=== PATIENT | male | born 1970 | race American Indian/Alaskan Native ===

== ENCOUNTER 2018-02-19 21:06 | Emergency (ER) | payer OTHER ==
[2018-02-19] MEDS ORDERED: ASPIRIN PO ONE (21:37)
[2018-02-19] MEDS ORDERED: ATIVAN IV ONE (21:40)
[2018-02-19] MEDS ORDERED: NACL 0.9% 1000 ML 1,000 ML IV ONE (21:40)
--- NOTE | 2018-02-19 21:41 | Emergency Department Report ---
ED Chest Pain HPI - General Chief Complaint: Chest Pain Stated Complaint: CHEST PAIN Time Seen by Provider: 02/19/18 21:30 Source: patient, EMS (ems notes not available at time of chart dictation), RN notes reviewed Mode of arrival: Stretcher Limitations: No Limitations - History of Present Illness Initial Comments: This is a 47-year-old gentleman, unknown to this provider previously. The patient does not have a local primary care doctor, but reports that he has a follow-up stained glass painter, in 2 days, at [facility]. Patient reports that he was seen at [facility] yesterday for chest discomfort. He reports that this past weekend, he flew to [place] for a . He reports that he's been feeling somewhat anxious, and having intermittent left-sided chest wall tightness. The tightness does not radiate to the back, arms or neck, there is no vomiting, there is no diaphoresis, patient does not have shortness of breath per se, but reports that he is feeling anxious, and feels like he is not getting a complete breath. He has taken aspirin today, otherwise denies cocaine use, denies leg pain, leg swelling, hematemesis, bright red blood per rectum, and further reports no family history of cardiac disease, or DVT or pulmonary embolus. He reports that his chest discomfort is essentially resolved at this time, and reports that this started earlier on this evening, at around 7:00, and has since resolved. MD Complaint: chest pain -: Sudden Onset: during rest Pain Location: left chest Pain Radiation: none Severity: mild Severity scale (0 -10): 0 Quality: aching Consistency: intermittent Improves With: nothing Worsens With: nothing Context: recent travel, other Aspirin use within the Past 7 Days: (1) Yes - Related Data Previous Rx's Medication Instructions Recorded Last Taken Type Aspirin [Aspirin BABY CHEW TAB] 81 mg PO QDAY #30 tab.chew 02/20/18 Unknown Rx Allergies Allergy/AdvReac Type Severity Reaction Status Date / Time bismuth subsalicylate AdvReac Unknown Verified 02/19/18 21:36 [From Pepto-Bismol] Heart Score - HEART Score History: Slightly suspicious EKG: Normal Age: 45-65 Risk factors: No known risk factors Troponin: < normal limit HEART Score: 1 - Critical Actions Critical Actions: 0-3 pts:0.9-1.7%risk of adverse cardiac event.Candidate for discharge ED Review of Systems ROS: Stated complaint: CHEST PAIN Other details as noted in HPI Constitutional: denies: fever, malaise Eyes: denies: vision change ENT: denies: epistaxis Respiratory: denies: wheezing Cardiovascular: chest pain Gastrointestinal: denies: nausea, vomiting, hematemesis, melena, hematochezia Genitourinary: denies: dysuria Musculoskeletal: denies: back pain, arthralgia, myalgia Skin: denies: lesions Neurological: denies: weakness Psychiatric: anxiety ED Past Medical Hx - Past Medical History Previous Medical History?: Yes Hx Hypertension: Yes - Surgical History Past Surgical History?: Yes Additional Surgical History: Abdominal Hernia Sx with mesh - Social History Smoking Status: Current Some Day Smoker Substance Use Type: Marijuana - Medications Home Medications: Home Medications Medication Instructions Recorded Confirmed Last Taken Type Aspirin [Aspirin BABY CHEW TAB] 81 mg PO QDAY #30 tab.chew 02/20/18 Unknown Rx ED Physical Exam - General Limitations: No Limitations General appearance: alert, in no apparent distress - Head Head exam: Present: atraumatic, normocephalic - Eye Eye exam: Present: normal appearance, EOMI. Absent: nystagmus - ENT ENT exam: Present: normal exam, normal orophraynx, mucous membranes moist, normal external ear exam - Neck Neck exam: Present: normal inspection, full ROM. Absent: tenderness, m eningismus - Respiratory Respiratory exam: Present: normal lung sounds bilaterally. Absent: respiratory distress - Cardiovascular Cardiovascular Exam: Present: normal rhythm, tachycardia, normal heart sounds. Absent: systolic murmur, diastolic murmur, rubs, gallop - GI/Abdominal GI/Abdominal exam: Present: soft. Absent: distended, tenderness, guarding, rebound, rigid, pulsatile mass - Rectal Rectal exam: Present: deferred - Extremities Exam Extremities exam: Present: normal inspection, other (2+ pulses noted in the bilateral upper, lower extremities. Compartments soft. No long bony tenderness. The pelvis is stable.). Absent: pedal edema, joint swelling, calf tenderness - Back Exam Back exam: Present: normal inspection, full ROM. Absent: tenderness, CVA tenderness (R), paraspinal tenderness - Neurological Exam Neurological exam: Present: alert, oriented X3, CN II-XII intact, normal gait, other (Extraocular movements intact. Tongue midline. No facial droop. Facial sensation intact to light touch in the V1, V2, V3 distribution bilaterally. 5 and 5 strength in 4 extremities.. Sensation is intact to light touch in 4 extremities.). Absent: motor sensory deficit - Psychiatric Psychiatric exam: Present: anxious - Skin Skin exam: Present: warm, dry, intact, normal color. Absent: rash ED Course Vital Signs 02/19/18 02/19/18 21:28 21:37 Temperature 98.5 F Pulse Rate 101 H Respiratory 24 15 Rate Blood Pressure 151/96 Blood Pressure 151/96 [Right] O2 Sat by Pulse 95 100 Oximetry - Reevaluation(s) Reevaluation #1: 02/19/18 22:13 Differential diagnosis, including but not limited to: Anxiety, pulmonary em bolus, pneumonia, acute coronary syndrome Assessment and plan: 47-year-old gentleman, low risk by well's criteria, only risk factor for thromboembolic disease is recent plane trip to [place], , inter mittent tachycardia, not hypoxic, with no physical exam evidence on the lower extremities of DVT or pulmonary embolus. Plan patient to be low risk by well's criteria, we will risk stratify with a d-dimer. Chest pain-free at this time, has no complaints at this time, noted to be watching TV, walking with a steady gait, clinically sober, and in no acute distress. Patient low risk by the ZACH score, low risk by heart score, very unlikely to experience major adverse cardiac event, has cardiology follow-up in 2-3 days. Extensive discussion had with patient regarding various options for cardiac risk stratification. Through shared decision making, patient and I agree that if laboratory studies and EKGs appeared to be unremarkable, patient reports that he would prefer to follow up with an outpatient stained glass painter on as scheduled, to complete his outpatient risk stratification. The patient exhibits decision-making capacity at this time, understands that he is at low risk for significant adverse event, has outpatient arrange follow-up with a specialist. Reevaluation #2: 02/19/18 23:51 Troponin negative 1. D-dimer negative. X-ray of the chest unremarkable. Patient in stretcher, on room, and in no acute distress. Reevaluation #3: 02/20/18 00:59 Troponin is negative 2. Repeat EKG unremarkable and demonstrates resolution of tachycardia. Patient in no distress at this time. Comfortably. Has follow-up in less than 48 hours. He will be discharged at this point in time. He reports he is reliable to follow-up. Reevaluation #4: 02/20/18 01:00 Resting heart rate in the 90s Reevaluation #5: 02/20/18 01:01 Patient is not allergic to aspirin, reports having taken 5 aspirin within the past 24 hours. ZACH score - Zach Score Age > 65: (0) No Aspirin use within the Past 7 Days: (1) Yes 3 or more CAD Risk Factors: (0) No 2 or more Angina events in past 24 hrs: (0) No Known CAD with more than 50% Stenosis: (0) No Elevated Cardiac Markers: (0) No ST Deviation Greater than 0.5mm: (0) No ZACH Score: 1 ED Medical Decision Making - Lab Data Result diagrams: 02/19/18 21:53 02/19/18 21:53 Vital Signs 02/19/18 21:28 Temperature 98.5 F Pulse Rate 101 H Respiratory 24 Rate Blood Pressure 151/96 Blood Pressure 151/96 [Right] O2 Sat by Pulse 95 Oximetry - EKG Data -: EKG Interpreted by Me EKG shows normal: sinus rhythm, axis, intervals, QRS complexes, ST-T waves - EKG Data When compared to previous EKG there are: previous EKG unavailable 02/19/18 22:15 Atrial enlargement, no prior for comparison, otherwise no acute disease, unremarkable EKG. - Radiology Data Radiology results: image reviewed interpreted by me: X-ray of the chest is negative for acute disease. Critical care attestation.: If time is entered above; I have spent that time in minutes in the direct care of this critically ill patient, excluding procedure time. ED Disposition Clinical Impression: History of chest pain Disposition: TO HOME OR SELFCARE Is pt being admited?: No Does the pt Need Aspirin: No Condition: Stable Instructions: Chest Pain (ED) Additional Instructions: Follow-up with the stained glass painter within the next 2-3 days. Take the aspirin as directed. Return to the ER right away with new pain, worsened pain, migration of pain, projectile vomiting, change in mental status, confusion, inability to speak, inability to breathe, new, worsening or different symptoms. Referrals: [facility] [Provider Group] - 3-5 Days [facility] [Provider Group] - 3-5 Days
[2018-02-19 22:40] LABS: Basophils # (Auto) 0.1 K/mm3 (0.0-0.1); Basophils % (Auto) 0.8 % (0.0-1.8); Eosinophils % (Auto) 0.1 % (0.0-4.3); Hematocrit 42.3 % (35.5-45.6); Hemoglobin 14.1 gm/dl (11.8-15.2); Lymphocytes # (Auto) 1.6 K/mm3 (1.2-5.4); Mean Corpuscular HGB Conc 33 % (32-34); Mean Corpuscular Volume 87 fl (84-94); Monocytes # (Auto) 0.5 K/mm3 (0.0-0.8); Monocytes % (Auto) 5.5 % (0.0-7.3); Platelet Count 244 K/mm3 (140-440); Red Blood Count 4.87 M/mm3 (3.65-5.03)
[2018-02-19 22:53] LABS: INR 0.91 (0.87-1.13)
[2018-02-19 22:54] LABS: Partial Thromboplastin Time 28.4 Sec. (24.2-36.6)
[2018-02-19 22:57] LABS: BUN/Creatinine Ratio 8; Blood Urea Nitrogen 5 mg/dL (9-20); Hemolysis Index 18
--- NOTE | 2018-02-19 23:42 | XRay Report ---
FINAL REPORT PROCEDURE: Chest. TECHNIQUE: PA and lateral views. HISTORY: Chest pain. COMPARISON: No prior studies are available for comparison. FINDINGS: The heart and mediastinum appear normal. The lungs are clear and well expanded. There are no pleural effusions. The soft tissues and regional skeleton are unremarkable. IMPRESSION: Normal study.
[2018-02-20 01:08] VITALS: BP 145/83
== END 2018-02-20 01:35 | disposition home or self-care (01) ==
LOC: ED 21:06
DX: R07.89 Other chest pain (principal); I10 Essential (primary) hypertension; F17.200 Nicotine dependence, unspecified, uncomplicated; F12.10 Cannabis abuse, uncomplicated; Z88.8 Allergy status to other drugs, medicaments and biological substances
CPT/HCPCS: 36415; 71046; 80048; 84484; 85025; 85379; 85610; 85730; 93005; 93010; 99285; J7030